=== PATIENT | female | born 1955 | race American Indian/Alaskan Native ===

== ENCOUNTER 2017-01-29 08:40 | Outpatient (CLI) | payer MEDICARE, OTHER ==
--- NOTE | 2017-01-29 14:26 | Mammography Report ---
BILATERAL DIGITAL AUGMENTED SCREENING MAMMOGRAM with CAD: 01/29/17 08:40:00 CLINICAL: Routine screening. COMPARISON:01/30/16 FINDINGS: Screening views with and without implant displacement demonstrate intermediate density breasts. A group of calcifications in the inner left breast requires additional imaging. The calcifications have increased in number compared to the last exam. The right breast is negative. Intact subglandular implants. IMPRESSION: Left calcifications requiring further imaging. BI-RADS CATEGORY: 0--Needs Additional Imaging RECOMMENDATION: Recall for CC and LM implant displaced magnification views. ACR BI-RADS MAMMOGRAPHIC CODES: 0 = Needs additional imaging evaluation; 1 = Negative; 2 = Benign; 3 = Probably benign; 4 = Suspicious; 5 = Malignant; 6 = Known biopsy-proven malignancy COMMENT: 1. Dense breast tissue, i.e., adenosis, fibrocystic changes, etc., may obscure an underlying neoplasm. 2. Approximately 10% of cancers are not detected with mammography. 3. A negative mammography report should not delay biopsy if a clinically suspicious mass is present. COMMENT: Patient follow-up letters are generated via our [employer] application.
== END 2017-01-29 08:41 | disposition home or self-care (01) ==
LOC: SPVWC 08:40
PROVIDERS: ATTEND Obstetrics & Gynecology Gynecology
DX: Z12.31 Encounter for screening mammogram for malignant neoplasm of breast (principal)
CPT/HCPCS: 77067; G0202

== ENCOUNTER 2017-02-24 08:47 | Outpatient (CLI) | payer MEDICARE, OTHER ==
--- NOTE | 2017-02-24 10:10 | Mammography Report ---
Left mammogram: Left breast cancer with implant. The calcifications identified on recent screening exam. Magnification views demonstrates chunky benign-appearing dystrophic calcifications as well as at least 2 separate groups of pleomorphic calcifications. The pleomorphic calcifications are distributed in a somewhat linear configuration. The patient has a relative paucity of breast tissue anterior to her implant. Impressions: 2 groups of indeterminate left breast calcifications. Recommendation: Additional evaluation is necessary. Considerations would include an MR scan or surgical biopsy. Recommend surgical consultation. These findings and recommendations have been discussed with the patient. BI-RADS CATEGORY: 4 = Suspicious ACR BI-RADS MAMMOGRAPHIC CODES: 0 = Needs additional imaging evaluation; 1 = Negative; 2 = Benign; 3 = Probably benign; 4 = Suspicious; 5 = Malignant; 6 = Known biopsy-proven malignancy COMMENT: 1. Dense breast tissue, i.e., adenosis, fibrocystic changes, etc., may obscure an underlying neoplasm. 2. Approximately 10% of cancers are not detected with mammography. 3. A negative mammography report should not delay biopsy if a clinically suspicious mass is present.
== END 2017-02-24 08:48 | disposition home or self-care (01) ==
LOC: SPVWC 08:47
PROVIDERS: ATTEND Family Medicine
DX: C79.81 Secondary malignant neoplasm of breast (principal); Z98.82 Breast implant status; R92.1 Mammographic calcification found on diagnostic imaging of breast
CPT/HCPCS: G0206-LT

== ENCOUNTER 2017-03-26 07:38 | Day surgery (SDC) | payer MEDICARE, OTHER ==
[2017-03-26] MEDS ORDERED: NACL BACTERIOSTATIC INFILTRATI ONE (07:41)
[2017-03-26] MEDS ORDERED: MARCAINE 0.25% INFILTRATI ONE ×2 (07:51→10:55)
--- NOTE | 2017-03-26 08:33 | Anesthesia Consultation ---
Anesthesia Consult and Med Hx Date of service: 03/26/17 - Airway Anesthetic Teeth Evaluation: Dentures (upper), Partials (lower) ROM Head & Neck: Adequate Mental/Hyoid Distance: Adequate Mallampati Class: Class II Intubation Access Assessment: Probably Good - Pulmonary Exam CTA: Yes - Cardiac Exam Cardiac Exam: RRR - Pre-Operative Health Status ASA Pre-Surgery Classification: ASA2 Proposed Anesthetic Plan: General - Pre-Anesthesia Comment Pre-Anesthesia Comments: cardiac cath 02/2015-EF 63% - Pulmonary Hx Smoking: Yes (CIGARETTES 1/2 PPD X 47 YRS) - Gastrointestinal Hx Gastroesophageal Reflux Disease: Yes (controlled) - Other Systems Hx Cancer: Yes (LEFT BREAST, DX: [place] 2006)
--- NOTE | 2017-03-26 08:34 | Anesthesia Day of Surgery ---
Anesthesia Day of Surgery - Day of Surgery Patient Examined: Yes Patient H&P Reviewed: Yes Patient is NPO: Yes Cardiac Clearance: Yes (Medical clearence )
[2017-03-26] MEDS ORDERED: XYLOCAINE 1% 20 mL ONE (08:49)
[2017-03-26] MEDS ORDERED: DIPRIVAN 10 MG/ML IV ONE (08:50)
[2017-03-26] MEDS ORDERED: PEPCID PO NR (09:00)
[2017-03-26] MEDS ORDERED: LACTATED RINGERS 1,000 ML IV SCH (09:00)
[2017-03-26] MEDS ORDERED: VERSED IV NR (09:00)
--- NOTE | 2017-03-26 09:35 | Mammography Report ---
Left breast needle localization procedure. History: Indeterminate microcalcifications. Procedure: The patient's skin surface was prepped using sterile technique. Local anesthetic was injected into the skin. Using mammographic guidance, a 5 cm Jenkins needle was advanced into the area of interest at the site of the microcalcifications. Satisfactory localization was accomplished and a hookwire was left in place. The patient tolerated the procedure well clinically and was sent to the OR in satisfactory condition.
[2017-03-26] MEDS ORDERED: DILAUDID ONE (09:50)
[2017-03-26] MEDS ORDERED: XYLOCAINE MPF 2% ONE (09:50)
[2017-03-26] MEDS ORDERED: ANCEF/STERILE WATER 2 GM/20 ML IV NR (10:00)
--- NOTE | 2017-03-26 10:25 | Short Stay Summary ---
Short Stay Documentation Date of service: 03/26/17 - History H&P: obtained from office - Allergies and Medications Current Medications: Allergies No Known Allergies Allergy (Unverified 03/08/15 06:08) Home Medications Medication Instructions Recorded Confirmed Last Taken Type Lansoprazole (Nf) [Prevacid (Nf)] 30 mg PO QDAY PRN 03/25/17 03/26/17 03/26/17 06:30 History HYDROcodone/APAP 5-325 [[place] 1 each PO Q6HR PRN #30 tablet 03/26/17 Unknown Rx 5/325] Active Medications Cefazolin Sodium (Ancef/Sterile Water 2 Gm/20 Ml) 2 gm IV PREOP NR Stop: 03/26/17 23:59 Famotidine (Pepcid) 20 mg PO PREOP NR Stop: 03/26/17 23:59 Last Admin: 03/26/17 09:41 Dose: 20 mg Lactated Ringer's (Lactated Ringers) 1,000 mls @ 42 mls/hr IV DIRECT LIANNA Last Admin: 03/26/17 09:42 Dose: 42 mls/hr Midazolam HCl (Versed) 2 mg IV PREOP NR Stop: 03/26/17 23:59 Last Admin: 03/26/17 09:44 Dose: 2 mg - Brief post op/procedure progress note Date of procedure: 03/26/17 Pre-op diagnosis: Abnormal left mammogram, suspicious microcalcifications Post-op diagnosis: same Procedure: Left needle localization excisional biopsy Anesthesia: GETA Findings: wire and suspicious microcalcifications present within radiograph specimen; implant not encountered Surgeon: VANESSA LI Estimated blood loss: minimal Pathology: list (left breast excisional biopsy) Specimen disposition: to lab Condition: stable - Disposition Condition at discharge: Good Disposition: DISCHARGED TO HOME OR SELFCARE Short Stay Discharge Plan Activity: other (no heavy lifting) Diet: regular Wound: other (keep incision clean and dry; may shower in 24 hours; no baths, pools or lakes; do not rub or scrub incision) Follow up with: MANNY CARBAJAL MD [Primary Care Provider] - 7 Days VANESSA LI MD [Staff Physician] - 7 Days Prescriptions: HYDROcodone/APAP 5-325 [[place] 5/325] 1 each PO Q6HR PRN #30 tablet PRN Reason: Pain
--- NOTE | 2017-03-26 10:29 | Operative Report ---
Operative Report Operative Report: Date of procedure: 03/26/2017 Pre-operative diagnosis: Left breast suspicious microcalcifications of the upper inner quadrant Post-operative diagnosis: Same Procedure name(s): Complicated left breast needle localization excisional biopsy Surgeon: Hayley Díaz M.D. Anesthesia: Gen. Findings: Wire suspicious microcalcifications present with a radiograph specimen Complications: None Disposition: PACU in good condition Indications for operative procedure: This is a 67-year-old lady with a history of left breast cancer diagnosed 11 years ago with recent findings on diagnostic annual left mammogram suspicious left breast microcalcifications. Patient has implants present. Left stereotactic breast biopsy procedure was attempted but unsuccessful given location. Recommendations were to proceed with an excisional biopsy. Patient wished to proceed with the above procedure. Procedure in detail: Radiology placed wire to localize suspicious microcalcifications of concern. The patient was taken to the operating room and was laid supine. Gen. anesthesia was administered without any complications. The left breast was prepped and draped in the normal sterile operative fashion. Timeout was performed. The wire was identified. A skin incision was made with 15 blade knife with dissection taken down to subcutaneous tissues. Procedure began with raising of the superior flap followed by raising of the lateral, inferior and medial flap. The wire was removed from the skin. The area of concern was appropriately grasped and then removed without incident with the aid of Bovie cautery. Implant noted and unharmed. Radiograph specimen with wire and suspicious calcifications present. Hemostasis was obtained. The subcutaneous tissue were approximated and closed using interrupted 3-0 Vicryl to also include covering the implant with breast tissue. The skin closed using a running 4-0 Monocryl and skin affix. She tolerated surgery very well. She was awakened from anesthesia without any complications and transported to PACU in good condition.
[2017-03-26] MEDS ORDERED: ZOFRAN ONE (10:30)
[2017-03-26] MEDS ORDERED: DECADRON ONE (10:30)
[2017-03-26] MEDS ORDERED: WATER FOR IRRIG STERILE IR ONE (10:55)
--- NOTE | 2017-03-26 11:25 | Mammography Report ---
Specimen radiograph. Findings: A single specimen radiograph confirms the presence of the microcalcifications and the hookwire within the specimen.
--- NOTE | 2017-03-26 15:02 | Post Anesthesia Evaluation ---
- Post Anesthesia Evaluation Patient Participated: Yes Airway Patent: Yes Stable Respiratory Function: Yes Nausea/Vomiting: No Temp > 96.8F: Yes Pain Manageable: Yes Adequeate Hydration: Yes Anesthesia Complications: No Block Receding Appropriately: Not Applicable Patient on Ventilator: No
[2017-03-26 17:57] VITALS: BP 169/89
== END 2017-03-26 13:07 | disposition home or self-care (01) ==
LOC: OR 07:38
PROVIDERS: ATTEND Surgery
DX: D05.12 Intraductal carcinoma in situ of left breast (principal); K21.9 Gastro-esophageal reflux disease without esophagitis; F17.210 Nicotine dependence, cigarettes, uncomplicated; Z90.710 Acquired absence of both cervix and uterus; Z98.890 Other specified postprocedural states; Z80.3 Family history of malignant neoplasm of breast
CPT/HCPCS: 19125; 19281; 76098; 88307; J0690; J1100; J1170; J2250; J2405; J2704; J7120; 88361

== ENCOUNTER 2017-08-14 08:41 | Outpatient (CLI) | payer MEDICARE, OTHER ==
--- NOTE | 2017-08-15 10:10 | Cat Scan Report ---
CT ABDOMEN AND PELVIS WITH CONTRAST: 08/14/17 08:41:00 CLINICAL: Known left breast cancer and palpable lumps in the upper abdomen, mid abdomen and left lower quadrant. COMPARISON: None. TECHNIQUE: Volumetric acquisition and 1.25 millimeter scan reconstructions after the uneventful intravenous injection of 100 cc Omnipaque 300. Consent was obtained prior to the administration of contrast. Oral contrast was also given. FINDINGS: Abdomen: The lung bases are clear. Status post left breast muscle flap reconstruction. Several nodules of fat at the superior aspect of the reconstruction have increased density typical of benign fat necrosis. The largest measures 3.6 x 1.8 cm. A right breast implant is partially included on exam. The cephalad portion of the right rectus abdominis muscle has been resected. A 1.5 cm oval fat density subcutaneous nodule overlies the left rectus abdominis muscle and it overlies a surgical clip. No other nodules or masses are identified. No ventral hernia or umbilical hernia. Normal liver and bile ducts status post cholecystectomy. Normal stomach, duodenum, pancreas and spleen. Normal aorta and inferior vena cava. A 1.3 cm fat density (-12 Hounsfield units) mass of the posterior upper pole of the left kidney. The kidneys are otherwise normal. The renal collecting systems and ureters are nondilated.Normal small bowel. Normal ascending, transverse and descending colon. The appendix is normal. No mass, lymphadenopathy or ascites. Pelvis: Absent uterus and normal vaginal cuff. Normal urinary bladder.Normal ovaries. No adnexal mass or free fluid. Diverticulosis of the proximal sigmoid colon but no diverticulitis. Normal rectum.. Bone windows demonstrate no bone lesion. Moderately severe osteoarthritis of the right hip with geodes of both sides of the joint. IMPRESSION:1. No evidence of metastasis. 2. Benign fat necrosis involving the reconstructed left breast and benign fat necrosis of the left lower anterior abdominal wall with a 1.5 cm subcutaneous fat nodule. 3. Status post cholecystectomy and hysterectomy. 4. Sigmoid diverticulosis but no diverticulitis. 5. A 1.3 cm fat density mass of the upper pole of the left kidney is consistent with a benign angiomyolipoma.
== END 2017-08-14 08:42 | disposition home or self-care (01) ==
LOC: SPVIMAG 08:41
PROVIDERS: ATTEND Surgery
DX: C50.912 Malignant neoplasm of unspecified site of left female breast (principal); K57.30 Diverticulosis of large intestine without perforation or abscess without bleeding; M16.11 Unilateral primary osteoarthritis, right hip; N64.1 Fat necrosis of breast; N28.89 Other specified disorders of kidney and ureter; R19.02 Left upper quadrant abdominal swelling, mass and lump; R19.04 Left lower quadrant abdominal swelling, mass and lump; Z90.49 Acquired absence of other specified parts of digestive tract; Z90.710 Acquired absence of both cervix and uterus; F17.200 Nicotine dependence, unspecified, uncomplicated
CPT/HCPCS: 74177; Q9967

== ENCOUNTER 2018-02-03 08:43 | Outpatient (CLI) | payer MEDICARE, OTHER ==
--- NOTE | 2018-02-03 09:41 | Mammography Report ---
RIGHT DIGITAL DIAGNOSTIC MAMMOGRAM WITH CAD: 02/03/18 08:43:00 CLINICAL: Breast cancer survivor status post left mastectomy in 2017. COMPARISON:01/29/17 FINDINGS: Routine views without and with implant displacement were performed. An outer asymmetry on the CC view demonstrates satisfactory effacement with spot magnification. No mass, architectural distortion or suspicious calcifications. Intact subglandular implant. IMPRESSION: No mammographic evidence of malignancy. BI-RADS CATEGORY: 2 -- Benign RECOMMENDATION: Routine mammographic screening in one year. ACR BI-RADS MAMMOGRAPHIC CODES: 0 = Needs additional imaging evaluation; 1 = Negative; 2 = Benign; 3 = Probably benign; 4 = Suspicious; 5 = Malignant; 6 = Known biopsy-proven malignancy COMMENT: 1. Dense breast tissue, i.e., adenosis, fibrocystic changes, etc., may obscure an underlying neoplasm. 2. Approximately 10% of cancers are not detected with mammography. 3. A negative mammography report should not delay biopsy if a clinically suspicious mass is present. COMMENT: Patient follow-up letters are generated via our [employer] Nurse Navigator application.
== END 2018-02-03 08:44 | disposition home or self-care (01) ==
LOC: SPVWC 08:43
PROVIDERS: ATTEND Surgery
DX: N64.89 Other specified disorders of breast (principal); Z85.3 Personal history of malignant neoplasm of breast; Z90.12 Acquired absence of left breast and nipple; Z98.82 Breast implant status

== ENCOUNTER 2018-02-16 08:12 | Outpatient (CLI) | payer MEDICARE, OTHER ==
--- NOTE | 2018-02-16 10:30 | Cat Scan Report ---
CT CHEST AND ABDOMEN WITH CONTRAST: 02/16/18 08:12:00 CLINICAL: History of breast cancer status post left mastectomy in 2017. Ventral hernia. COMPARISON: 08/14/17 CT abdomen and pelvis with contrast TECHNIQUE: Volumetric acquisition and 1.25 millimeter scan reconstructions after the uneventful intravenous injection of 100 cc of Omnipaque 300. Consent was obtained prior to the administration of the contrast. Oral contrast was also given. FINDINGS: Chest: The lungs are clear. No pulmonary nodule or mass. Normal aorta, heart and pulmonary arteries. Normal esophagus and trachea. No mediastinal or hilar lymphadenopathy.No axillary or supraclavicular lymphadenopathy. Status post left mastectomy with flap reconstruction of the left breast. Several of fat necrosis in the reconstructed breast are typical of benign oil cysts. The largest is central and posterior and measures 4.5 x 2.9 cm. The next largest measures 2.2 cm. Abdomen: The ventral fascia appears intact but there is slightly greater bulging of fat inferior to the inferior edge of the left lobe of the liver near the midline and slightly right of midline. The bulge measures approximately 4 cm in fragment transverse dimension by approximately 3.5 cm craniocaudal dimension. The transverse colon lies posterior to the bulging fat. However, no bowel herniates into the abdominal wall. The right rectus muscle has been surgically resected and there is no hernia at the upper portion of the muscle has been resected. The anterior abdominal wall is not included on exam since the CT pelvis was not ordered. The liver is normal size with normal contour and overall density. A few tiny benign hepatic cysts are unchanged compared to the prior exam. Normal bile duct status post cholecystectomy. Normal stomach, duodenum, pancreas and spleen. Normal adrenal glands. A 1.2 cm left upper renal cyst. The kidneys are otherwise normal. The renal collecting systems and ureters are nondilated. The imaged portions of small bowel and colon are normal. The appendix is well imaged and normal. Moderate calcification of the abdominal aorta and iliac arteries. Mild aortic tortuosity but no aneurysm. The inferior vena cava is normal.No ascites. Bone windows demonstrate no suspicious bone lesion. IMPRESSION:1. Status post left mastectomy and flap reconstruction of the left breast. 2. Benign fat necrosis in the reconstruction flap. 3. No evidence of metastasis. 4. Mild bulge of fat in the anterior abdominal wall of the epigastrium with an intact ventral fascia. 5. Benign hepatic cysts. 6. Status post cholecystectomy.
== END 2018-02-16 08:13 | disposition home or self-care (01) ==
LOC: SPVIMAG 08:12
PROVIDERS: ATTEND Surgery
DX: K43.9 Ventral hernia without obstruction or gangrene (principal); N28.1 Cyst of kidney, acquired; K76.89 Other specified diseases of liver; I70.0 Atherosclerosis of aorta; N64.1 Fat necrosis of breast; Q25.46 Tortuous aortic arch; Z90.49 Acquired absence of other specified parts of digestive tract; Z90.12 Acquired absence of left breast and nipple; Z98.890 Other specified postprocedural states
CPT/HCPCS: 71260; 74160; Q9967

== ENCOUNTER 2018-03-17 08:10 | Day surgery (SDC) | payer MEDICARE, OTHER ==
[~2018-03-17 08:10] MED LIST: LACTATED RINGERS 1,000 ML IV SCH; MARCAINE 0.5% INFILTRATI ONE; XYLOCAINE 1% 20 mL INFILTRATI ONE
[2018-03-17] MEDS ORDERED: MARCAINE 0.5% 30 ML INFILTRATI ONE ×2 (09:06→10:19)
[2018-03-17] MEDS ORDERED: SUBLIMAZE ONE ×2 (09:07→09:39)
[2018-03-17] MEDS ORDERED: VERSED ONE (09:07)
[2018-03-17] MEDS ORDERED: DECADRON ONE (09:14)
[2018-03-17] MEDS ORDERED: PEPCID IV ONE (09:15)
[2018-03-17] MEDS ORDERED: ZOFRAN ONE ×2 (09:16→12:30)
[2018-03-17] MEDS ORDERED: DIPRIVAN 10 MG/ML IV ONE (09:38)
[2018-03-17 09:51] LABS: Hematocrit 37.1 % (30.3-42.9); Hemoglobin 12.5 gm/dl (10.1-14.3)
--- NOTE | 2018-03-17 10:13 | Anesthesia Day of Surgery ---
Anesthesia Day of Surgery - Day of Surgery Patient H&P Reviewed: Yes Patient is NPO: Yes
[2018-03-17] MEDS ORDERED: DEMEROL IV PRN (10:14)
[2018-03-17] MEDS ORDERED: ZOFRAN IV PRN (10:14)
[2018-03-17] MEDS ORDERED: DILAUDID IV PRN (10:14)
--- NOTE | 2018-03-17 10:14 | Anesthesia Consultation ---
Anesthesia Consult and Med Hx Date of service: 03/17/18 - Airway Anesthetic Teeth Evaluation: Good ROM Head & Neck: Adequate Mental/Hyoid Distance: Adequate Mallampati Class: Class II Intubation Access Assessment: Probably Good - Pulmonary Exam CTA: Yes - Cardiac Exam Cardiac Exam: RRR - Pre-Operative Health Status ASA Pre-Surgery Classification: ASA2 Proposed Anesthetic Plan: General - Pulmonary Hx Smoking: Yes (1/3 PPD FOR 30 YEARS) Hx Asthma: No COPD: No Hx Pneumonia: No Hx Sleep Apnea: No - Central Nervous System Hx Psychiatric Problems: No - Gastrointestinal Hx Gastroesophageal Reflux Disease: Yes (controlled) - Endocrine Hx End Stage Renal Disease: No - Other Systems Hx Alcohol Use: No Hx Substance Use: No Hx Cancer: Yes
[2018-03-17] MEDS ORDERED: XYLOCAINE 1% 20 mL ONE (10:19)
[2018-03-17] MEDS ORDERED: ANCEF/STERILE WATER 2 GM/20 ML IV NR (11:00)
[2018-03-17] MEDS ORDERED: MARCAINE 0.5% INFILTRATI ONE (12:00)
[2018-03-17] MEDS ORDERED: XYLOCAINE 1% 20 mL INFILTRATI ONE (12:00)
--- NOTE | 2018-03-17 12:15 | Post Operative Note ---
Date of procedure: 03/17/18 (Dictation#[id number]) Pre-op diagnosis: ventral hernia Post-op diagnosis: same Findings: 5x8cm ventral hernia Procedure: Lap lysis of adhesions and ventral hernia repair with mesh Anesthesia: DEEDEE Surgeon: ALLI HINOJOSA [employer] Supervisor: ANTOINETTE PACHECO Estimated blood loss: minimal (15cc) Pathology: none Condition: stable Disposition: PACU
[2018-03-17] MEDS ORDERED: ROBINUL ONE (12:35)
[2018-03-17] MEDS ORDERED: XYLOCAINE MPF 2% ONE (12:35)
[2018-03-17] MEDS ORDERED: ZEMURON IV ONE (12:35)
[2018-03-17] MEDS ORDERED: NEOSTIGMINE ONE (12:35)
--- NOTE | 2018-03-17 13:31 | Post Anesthesia Evaluation ---
- Post Anesthesia Evaluation Patient Participated: Yes Airway Patent: Yes Stable Respiratory Function: Yes Nausea/Vomiting: No Temp > 96.8F: Yes Pain Manageable: Yes Adequeate Hydration: Yes Anesthesia Complications: No
[2018-03-17 14:21] VITALS: BP 138/70
[2018-03-17] MEDS ORDERED: BENADRYL PO NR (15:30)
--- NOTE | 2018-03-17 19:17 | Operative Report ---
PREOPERATIVE DIAGNOSIS: Symptomatic ventral hernia. POSTOPERATIVE DIAGNOSIS: Symptomatic ventral hernia. PROCEDURES: 1. Laparoscopic lysis of adhesions. 2. Laparoscopic ventral hernia repair with mesh. ATTENDING PHYSICIAN: Shaunna Garcia MD PRIVATE DUTY NURSE: ANESTHESIA: General. ESTIMATED BLOOD LOSS: 15 mL. FLUIDS: 1200 mL. FINDINGS: Approximately 5 x 8 cm ventral hernia in the location of her prior TRAM flap mobilization. She also had extensive adhesions in her midline. SPECIMENS: None. COMPLICATIONS: None. DISPOSITION: Stable transport to recovery. IMPLANTS: A 10 x 15 cm Parietex DualMesh. INDICATIONS: This is a 62-year-old female who has had multiple surgeries for breast cancer, one of which was a TRAM flap reconstruction. The superior aspect of the rectus muscle mobilization developed a weakening that was bulging out and causing her pain. A CT scan suggested some weakness, but not a definitive hernia. The patient assessed to have a probable ventral hernia in need of repair. Procedure, risks, benefits were explained in detail to the patient. Risks included, but were not limited to infection, bleeding, pain, injury to surrounding structures, possible need for further surgery in the future, possible recurrence. The patient understood and consented. OPERATIVE NOTE: The patient was brought to the operating room and placed on the table in supine position. After adequate general anesthesia was established, the patient was prepped and draped in the usual sterile fashion. Antibiotics had been administered prior to start of the case. SCDs were in place. I began by insufflating the abdomen by placing a Veress needle in the left upper quadrant. I was able to insufflate in the first attempt. Based on the location of the hernia by clinical exam, we decided where the ports were replaced. We began by placing the right 5 mm ports using the Optiview technique. We entered the peritoneal cavity safely. We saw the Veress needle had not injured any underlying structures and that was removed. We placed another 5 mm port on the left side of the abdomen. There were significant amount of adhesions in the midline, which we took down with the LigaSure device. We also had falciform ligament that was part of the hernia. We took this down with the LigaSure device. A 12 mm port was placed in between the two 5 mm ports just to the left of midline. Once all the adhesions were taken down and the falciform was taken down, we then proceeded to evaluate and repair the hernia. We felt as though the hernia dimensions were approximately 5 x 8. We thought a 15 x 10 mesh would more than adequately cover the entire area. I placed four 2-0 Prolene sutures on each corner and then we marked out the placement of the mesh on the patient's body where the sutures would approximate be located. Small incisions were made. I passed the mesh into the abdominal cavity and then we pulled the sutures up with a Enzo-Ever needle. We tied the sutures down and we used the absorbable ProTacker to secure the periphery of the mesh to the anterior abdominal wall. Mesh appeared to lay very well with no evidence of any bleeding. There was no injury to the underlying structures. Everything looked very good. We then proceeded to take the 12 mm port out and closed that side with a Enzo-Ever needle using 0 Vicryl stitch, 5 mm ports were removed under direct vision. Abdomen was desufflated. We injected a total of 40 mL of 0.5% Marcaine and 1% lidocaine into the incisions. Skin sites were closed with 4-0 Monocryl subcuticular stitches. Skin was cleaned and dried. Dermabond was placed. The patient tolerated procedure well. There were no complications. All counts were correct at the end of the case. JOB# [id number] VERA/SHAWNA
== END 2018-03-17 15:37 | disposition home or self-care (01) ==
LOC: OR 08:10
PROVIDERS: ATTEND Surgery
DX: K66.0 Peritoneal adhesions (postprocedural) (postinfection) (principal); K21.9 Gastro-esophageal reflux disease without esophagitis; F17.210 Nicotine dependence, cigarettes, uncomplicated; Z85.3 Personal history of malignant neoplasm of breast; Z90.710 Acquired absence of both cervix and uterus; Z90.12 Acquired absence of left breast and nipple
CPT/HCPCS: 36415; 49652; 64450; 85014; 85018; C1781; J0690; J1100; J2250; J2405; J2704; J2710; J3010; J7120

== ENCOUNTER 2019-03-15 08:51 | Outpatient (CLI) | payer MEDICARE, OTHER ==
--- NOTE | 2019-03-15 10:54 | Mammography Report ---
BILATERAL DIGITAL SCREENING MAMMOGRAM WITH CAD: 03/15/19 09:00:00 CLINICAL: Routine screening.Breast cancer survivor status post left mastectomy and TRAM reconstruction . COMPARISON:02/03/18 right mammogram and 02/24/17 presurgical left mammogram. FINDINGS: Routine views of the right breast without and with implant displacement demonstrate a mostly fatty breast with a few benign calcifications. Intact subglandular right implant. Left TRAM reconstruction with a benign oil cyst in the medial breast in the cleavage measuring 1.4 cm. No mass, architectural distortion or suspicious calcifications. IMPRESSION: No mammographic evidence of malignancy. BI-RADS CATEGORY: 2 -- Benign RECOMMENDATION: Routine mammographic screening in one year. COMMENT: Patient follow-up letters are generated by our [employer] application.
== END 2019-03-15 08:52 | disposition home or self-care (01) ==
LOC: SPVWC 08:51
PROVIDERS: ATTEND Surgery
DX: Z12.31 Encounter for screening mammogram for malignant neoplasm of breast (principal); K21.9 Gastro-esophageal reflux disease without esophagitis; Z90.49 Acquired absence of other specified parts of digestive tract; Z90.710 Acquired absence of both cervix and uterus
CPT/HCPCS: 77067